=== PATIENT | female | born 1985 | race Caucasian/White ===

== ENCOUNTER 2025-02-12 18:17 | Emergency (ER) | payer SELFPAY ==
[~2025-02-12] VITALS: Ht 152.4 cm; Wt 110.0 kg
[2025-02-12 18:52] LABS: APPEARANCE,URINE HAZY (CLEAR); GLUCOSE, URINE (UA) NEGATIVE (NEGATIVE); LEUKOCYTE ESTERASE ,URINE LARGE (NEGATIVE); NITRATE,URINE NEGATIVE (NEGATIVE); OCCULT BLOOD,URINE NEGATIVE (NEGATIVE); SPECIFIC GRAVITIY, URINE 1.023 (1.003-1.030)
[2025-02-12 19:01] LABS: PLATELET COUNT (AUTO) 222 K/uL (150-450); RED BLOOD CELL COUNT(AUTO) 4.76 MIL/uL (4.00-5.20); RED CELL DISTRIBUTION WIDTH 13.6 % (11.5-14.5); WHITE BLOOD COUNT (AUTO) 5.5 K/uL (4.5-11.0)
[2025-02-12 19:08] LABS: HCG,QUAL URINE NEGATIVE (NEGATIVE)
[2025-02-12 19:18] LABS: CREATININE 0.63 mg/dL (0.60-1.30); GLUCOSE,RANDOM 93 mg/dL (70-110); SODIUM SERUM 138 mmol/L (136-145); UREA NITROGEN, BLOOD 16 mg/dL (7-18)
[2025-02-12 19:19] LABS: CALCIUM, TOTAL 8.7 mg/dL (8.8-10.5); GLOMERULAR FILTR. RATE CALC > 60 mL/min (>60)
[2025-02-12] MEDS: FLUCONAZOLE 150 MG TABLET PO ONE (21:01)
[2025-02-12 21:15] VITALS: BP 120/71; PULSE 95; RESP 18; TEMP 98.8; O2SAT 97
[2025-02-12] MEDS: KETOROLAC TROMETHAMINE 10 MG TABLET PO ONE (21:56)
[2025-02-12] MEDS ORDERED: FLUC150T61 PO (21:59)
== END 2025-02-12 22:07 | disposition home or self-care (01) ==
LOC: EMS 18:25
DX: B37.31 Acute candidiasis of vulva and vagina (principal); L29.9 Pruritus, unspecified; Z98.890 Other specified postprocedural states
CPT/HCPCS: 80048; 81001; 84703; 85025; 87210; 87491; 87591; 99283